=== PATIENT | male | born 1995 | race Caucasian/White ===

== ENCOUNTER 2024-09-25 16:04 | Emergency (ER) | payer OTHER, SELFPAY ==
--- NOTE | ~2024-09-25 | US_ITS ---
CLINICAL HISTORY: r o choly US abdomen limited. COMPARISON: None Technique: Real time sonographic imaging, including color-flow imaging, was performed by the audit consultant. Multiple housing management representative static images were saved for review. FINDINGS: The visualized portions of the pancreas appear normal. The liver has normal echotexture. The main portal vein is antegrade. Liver, right lobe size: 13.0 cm, normal. The gallbladder is normal in size. No cholelithiasis or sludge identified. There is a negative sonographic Gu's sign. Gallbladder wall: 2 mm, normal. Common bile duct: 4 mm, normal. Right kidney: Cortical medullary differentiation is maintained. Small echogenic nonshadowing focus present within the midportion of the right kidney measuring 0.3 cm. No hydronephrosis. Right kidney length: 10.4 cm No free intraperitoneal fluid identified. IMPRESSION: 1. No evidence of cholecystitis. 2. Small right renal calculus measuring 0.3 cm versus small angiomyolipoma. This document has been electronically signed by: Seymour Yoder MD on 09/25/2024 18:15:34
[2024-09-25 16:13] VITALS: BP 128/81; PULSE 97; RESP 20; TEMP 36.6; O2SAT 96; BMI 25.7
--- NOTE | 2024-09-25 16:25 | ED_ITS ---
HPI - General Adult General Chief complaint: Nausea/Vomiting/Diarrhea Stated complaint: gallbladder issues, sent from Time Seen by Provider: 09/25/24 21:01 History of Present Illness ED Provider: Pam TOM narrative: The patient is a 29-year-old male who is generally in good health and has no past surgical history. He says that he had epigastric abdominal discomfort after eating a take a pizza on Tuesday night, 2 nights ago. He says that Tuesday morning he was diaphoretic and developed significant diarrhea. This morning he had an episode of nausea and vomiting. He has had multiple episodes of diarrhea throughout the day today. Ultimately went to an urgent care this afternoon and was referred to the emergency room. At the urgent care they thought that he was having tenderness in the right upper quadrant I felt he should have his gallbladder evaluated. While waiting to be seen he feels that he might be slightly better. He last had an episode of diarrhea while in the waiting room. Related Data Allergies Allergy/AdvReac Type Severity Reaction Status Date / Time No Known Allergies Allergy Verified 09/25/24 16:14 Review of Systems 2 Review of Systems: Yes all other systems are reviewed and are negative [facility] Social History Social History Smoked in Last 30 Days: Yes Use of substances other than those prescribed or required for medical reasons: Yes Substance Use Type: Marijuana Advance Directives: No Advance Directives Information Provided: No Physical Exam ED Vital Signs: Vital Signs - 24 hr 09/25/24 16:13 09/25/24 22:21 Temperature 97.8 F 98.4 F Pulse Rate 97 88 Respiratory Rate 20 18 Blood Pressure 128/81 116/82 Pulse Oximetry 96 99 Oxygen Delivery Method Room Air BMI result Body Mass Index 25.7 Const Other: The patient looks as if he is an ordinarily healthy 29-year-old male. He is awake and alert, he does not appear in acute distress or obvious discomfort. Orientation/consciousness: patient oriented x3 HENMT Other: Face is symmetrical, mucous membranes moist Eyes General: appearance normal, both eyes and all related structures Neck Neck: Yes normal visual inspection Resp Effort & Inspection: normal respiratory effort Auscultation: clear to auscultation bilaterally Cardio Rate: regular rate Rhythm: regular rhythm Heart sounds: S1 normal heart sound present and S2 normal heart sound present GI Other: The abdomen is soft. He has tenderness in the epigastrium and in the right upper quadrant. No tenderness over McBurney's point. No left-sided tenderness. Skin Other: Skin is dry and unremarkable Neuro General: patient oriented x3, gait normal, tone normal, moves all extremities, no focal motor deficits and CN's II-XI intact bilaterally Extrem General: Yes no pedal edema and Yes no calf tenderness Course Course Course Narrative: RME: 29-year-old male sent from urgent care to rule out cholecystitis. Patient presents to ED with epigastric abdominal pain with nausea vomiting and diarrhea. Patient states he might be due to food poisoning but was sent here for evaluation. Patient is not in distress. Labs ultrasound ordered SARs ordered Medications Administered Discontinued Medications Generic Name Dose Route Start Last Admin Trade Name Freq PRN Reason Stop Dose Admin Al Hydroxide/Mg Hydroxide 30 ml 09/25/24 21:12 09/25/24 21:22 Magnesium Hydrox/Alum Hydrox 30 Ml Oral.Susp PO 09/25/24 21:13 30 ml ONCE ONE Administration Sucralfate 1 gm 09/25/24 21:12 09/25/24 21:22 Sucralfate Oral Suspension 1 Gm/10 Ml Oral.Susp PO 09/25/24 21:13 1 gm ONCE ONE Administration Medical Decision Making Medical Decision Making MDM Narrative: The patient is a 29-year-old male who is generally in good health who presents with an acute abdominal illness after eating take out pizza. He describes epigastric discomfort and right upper quadrant discomfort and tenderness. He describes multiple episodes of loose stools and 1 episode of vomiting. On exam he has a right upper quadrant tenderness. An ultrasound ordered at triage is negative for any biliary disease. He has a normal white count. Unremarkable differential. The patient says that he is feeling somewhat better over time. My suspicion for appendicitis is low given his absence of right lower quadrant tenderness. I spoke to the patient about whether we should pursue a CT scan for a more definitive investigation. I explained that I thought appendicitis or other surgical process was probably unlikely but it was difficult to excluded. The patient seemed comfortable with the prospect of going home since he was feeling somewhat better and understands he should return to the emergency room if his symptoms worsened, especially if worsening right lower quadrant tenderness. He was given a dose of Maalox and sucralfate prior to discharge. Lab Data 09/25/24 16:44 09/25/24 16:44 Labs: Lab Results 09/25/24 09/25/24 Range/Units 16:44 21:27 WBC 8.1 (4.8-10.8) X10*3/uL RBC 5.17 (4.60-5.80) X10*6/uL Hgb 14.6 (14.0-18.0) g/dl Hct 43.4 (42.0-52.0) % MCV 83.9 (80.0-98.0) fL MCH 28.2 (27.0-33.0) pg MCHC 33.6 (31.0-36.0) g/dl RDW 12.6 (11.0-16.0) % Plt Count 206 (160-400) X10*3/uL MPV 8.9 L (9.4-12.4) fL Immature Gran % (Auto) 0.2 (0.0-0.4) % Neut % (Auto) 75.2 H (45-73) % Lymph % (Auto) 11.1 L (20-40) % [place] % (Auto) 13.1 H (2-11) % Eos % (Auto) 0.2 (0-4) % Baso % (Auto) 0.2 (0-2) % Lymph # (Auto) 0.9 L (1.2-4.9) X10*3/uL [place] # (Auto) 1.1 (0.1-1.2) X10*3/uL Eos # (Auto) 0.0 (0.0-0.4) X10*3/uL Baso # (Auto) 0.0 (0.0-0.2) X10*3/uL Abs Immat Gran (auto) 0.02 (0.00-0.03) X10*3/uL Absolute Neuts (auto) 6.1 (2.0-8.3) x10*3/uL Absolute Nucleated RBC 0.000 (0.0-0.012) X10*3/uL Nucleated RBC % (auto) 0.0 (0.0-0.2) /100WBC Sodium 138 (135-145) mmol/L Potassium 4.6 (3.3-5.1) mmol/L Chloride 102 (96-108) mmol/L Carbon Dioxide 25 (22-29) mmol/L Anion Gap 16 (12-20) BUN 12 (9-16) mg/dL Creatinine 0.92 (0.5-1.4) mg/dL Estim Creat Clear Calc 123.9 Estimated GFR > 60 Random Glucose 101 (60-115) mg/dL Calcium 9.6 (8.4-10.2) mg/dL Total Bilirubin 0.6 (0.0-1.0) mg/dL AST 25 (5-37) U/L ALT 28 (0-40) U/L Alkaline Phosphatase 88 (39-117) U/L Total Protein 7.9 (6.5-8.0) g/dL Albumin 4.7 (3.5-5.0) g/dL Lipase 12 (8-78) U/L Urine Color Dark Yellow Urine Appearance Clear Urine pH 6.0 (5.0-9.0) Ur Specific [place] 1.025 (1.005-1.025) Urine Protein 30 (1+) H (Neg-Trace) mg/dL Urine Glucose (UA) Negative (Negative) mg/dL Urine Ketones 15 (Negative) mg/dL Urine Blood Negative (Negative) Urine Nitrite Negative (Negative) Ur Leukocyte Esterase Negative (Negative) Urine RBC 0-2 (0-2) /HPF Urine WBC 0-5 (0-5) /HPF Ur Squamous Epith Cells 0-2 (0-2) /HPF Urine Bacteria None Seen (None Seen) Hyaline Casts 0-2 (0-2) /LPF Influenza Type A (PCR) NEGATIVE (Negative) Influenza Type B (PCR) NEGATIVE (Negative) RSV RNA Qual (PCR) NEGATIVE (Negative) SARS-CoV-2 RNA (RT-PCR) NEGATIVE (Negative) Discharge Plan Discharge Clinical Impression: Diarrhea, Abdominal pain, Vomiting Patient Disposition: Home, Self-Care Instructions: Acute Diarrhea (ED) Additional Instructions: Your testing in the emergency room today seems reassuring. Your gallbladder ultrasound does not show any gallstones. Your blood testing and urine testing is likewise unremarkable. I would recommend taking clear fluids and simple foods like over cooked rice and toast. Bananas and applesauce are also good for a condition like yours. My expectation is that your symptoms will improve over the next day or 2. Please work on getting a primary care doctor. I have provided contact information for some possible primary care options. You may also contact your insurance company for advice on getting a PCP. However if at any point you feel significantly worse, especially if you have worsening right-sided pain, you should return to the emergency room for further evaluation Referrals: [facility] [place] [facility]] [facility] [address] [facility] [Provider Group] Interventions: ED Discharge Assessment Last Done: 09/25/24 22:21 Discharge Date/Time: 09/25/24 22:21 Print Language: Swazi
[2024-09-25 16:49] LABS: Basophils Percent Auto 0.2 % (0-2); Eosinophils Percent Auto 0.2 % (0-4); Hematocrit 43.4 % (42.0-52.0); Hemoglobin 14.6 g/dl (14.0-18.0); Imm Gran Abs Auto 0.02 X10*3/uL (0.00-0.03); Imm Gran Pct Auto 0.2 % (0.0-0.4); Lymphocytes Absolute Auto 0.9 X10*3/uL (1.2-4.9); Lymphocytes Percent Auto 11.1 % (20-40); MANUAL DIFF FLAG NO; Mean Corpuscular HGB Conc 33.6 g/dl (31.0-36.0); Mean Corpuscular Hemoglobin 28.2 pg (27.0-33.0); Mean Corpuscular Volume 83.9 fL (80.0-98.0); Mean Platelet Volume 8.9 fL (9.4-12.4); Monocytes Absolute Auto 1.1 X10*3/uL (0.1-1.2); Monocytes Percent Auto 13.1 % (2-11); Neutrophils Absolute Auto 6.1 x10*3/uL (2.0-8.3); Neutrophils Percent Auto 75.2 % (45-73); Platelet Count 206 X10*3/uL (160-400); Red Blood Count 5.17 X10*6/uL (4.60-5.80); Red Cell Distribution Width 12.6 % (11.0-16.0); White Blood Count 8.1 X10*3/uL (4.8-10.8)
[2024-09-25 17:28] LABS: Alanine Aminotransferase 28 U/L (0-40); Albumin Level 4.7 g/dL (3.5-5.0); Alkaline Phosphatase 88 U/L (39-117); Anion Gap 16 (12-20); Aspartate Amino Transferase 25 U/L (5-37); Bilirubin Total 0.6 mg/dL (0.0-1.0); Blood Urea Nitrogen 12 mg/dL (9-16); Calcium 9.6 mg/dL (8.4-10.2); Carbon Dioxide 25 mmol/L (22-29); Chloride 102 mmol/L (96-108); Creatinine Clr Calc Pharmacy 123.9; Estimated Glomerular Filt Rate > 60; Glucose Random 101 mg/dL (60-115); Lipase 12 U/L (8-78); Potassium 4.6 mmol/L (3.3-5.1); Sodium 138 mmol/L (135-145); Total Protein 7.9 g/dL (6.5-8.0)
[2024-09-25 18:13] LABS: Influenza A PCR NEGATIVE (Negative); Influenza B PCR NEGATIVE (Negative); Resp Syncy Virus RNA Qual PCR NEGATIVE (Negative); SARS COV2 PCR INHOUSE NEGATIVE (Negative)
[2024-09-25] MEDS: Magnesium Hydrox/Alum Hydrox 30 ML ORAL.SUSP PO (21:22)
[2024-09-25] MEDS: Sucralfate Oral Suspension 1 GM/10 ML ORAL.SUSP PO (21:22)
--- NOTE | 2024-09-25 21:30 | PC.NURSE ---
PT medicated as per JUL. urine sample collected. Educated on providing stool sample. Call weber within reach. Plan of care ongoing
[2024-09-25 21:36] LABS: Appearance Urine Clear; Color Urine Dark Yellow; Glucose Urine UA Negative (Negative); Leukocyte Esterase Urine Negative (Negative); Nitrite Urine Negative (Negative); Specific Gravity - Urine 1.025 (1.005-1.025); UMIC TRIGGER UACC YES; Urine Blood Negative (Negative); Urine Ketones 15 mg/dL (Negative); Urine Protein 30 (1+) mg/dL (Neg-Trace)
[2024-09-25 21:56] LABS: Bacteria Urine None Seen (None Seen); Hyaline Casts Urine 0-2 /LPF (0-2); RBC Urine 0-2 /HPF (0-2); Squamous Epithelial Cell Urine 0-2 /HPF (0-2); WBC Urine 0-5 /HPF (0-5)
[2024-09-25 22:21] VITALS: BP 116/82; PULSE 88; RESP 18; TEMP 36.9; O2SAT 99
== END 2024-09-25 22:21 | disposition home or self-care (01) ==
PROVIDERS: Emergency Provider Emergency Medicine
DX: R19.7 Diarrhea, unspecified (principal); R10.13 Epigastric pain; R11.2 Nausea with vomiting, unspecified; Z03.818 Encounter for observation for suspected exposure to other biological agents ruled out
CPT/HCPCS: 0241U; 36415; 76705; 80053; 81001; 83690; 85025; 99284

== ENCOUNTER → 2024-09-25 17:07 | Outpatient (BNV) | payer OTHER, SELFPAY | PROVIDERS: Visit Provider Radiology Diagnostic Radiology | DX: N20.0 Calculus of kidney (principal); R10.13 Epigastric pain | CPT/HCPCS: 76705 ==